=== PATIENT | female | born 1985 | race African-American/Black ===

== ENCOUNTER 2023-08-25 20:00 | Emergency (ER) | payer BC ==
[~2023-08-25] VITALS: Ht 185.4 cm; Wt 79.4 kg
[2023-08-25] MEDS ORDERED: LORAZEPAM 1 MG TABLET PO ONE (21:00)
[2023-08-25] MEDS ORDERED: LORAZEPAM 1 MG TABLET ONE (21:01)
[2023-08-25 22:07] VITALS: BP 133/85; TEMP 98.4; O2SAT 100
== END 2023-08-25 22:07 | disposition home or self-care (01) ==
LOC: ER 20:16
DX: F41.0 Panic disorder [episodic paroxysmal anxiety] (principal); Z60.2 Problems related to living alone

== ENCOUNTER 2023-09-03 11:12 | Emergency (ER) | payer BC ==
[~2023-09-03] VITALS: Ht 185.4 cm; Wt 81.2 kg
[2023-09-03 11:31] VITALS: BP 133/85; TEMP 98.4
[2023-09-03 12:24] LABS: BASOPHILS % (AUTO) 0.7 % (0.0-2.0); EOSINOPHILS % (AUTO) 0.7 % (0.0-6.0); HEMATOCRIT 41 % (33-45); HEMOGLOBIN 12.8 g/dL (11.5-14.8); LYMPHOCYTES % (AUTO) 27.4 % (20.0-44.0); MEAN CORPUSCULAR HEMOGLOBIN 24 PG (26.0-33.0); MEAN CORPUSCULAR HGB CONC 31 g/dl (31.0-36.0); MEAN CORPUSCULAR VOLUME 76 fL (82-100); MONOCYTES # (AUTO) 0.4 K/uL (0.1-1.30); MONOCYTES % (AUTO) 5.2 % (2.0-12.0); NEUTROPHILS # (AUTO) 4.7 K/uL (1.8-8.9); PLATELET COUNT (AUTO) 262 K/uL (150-450); RED BLOOD CELL COUNT(AUTO) 5.38 MIL/uL (4.0-5.2); RED CELL DISTRIBUTION WIDTH 15.8 % (11.5-15.0); WHITE BLOOD COUNT (AUTO) 7.2 K/uL (4.3-11.0)
[2023-09-03 12:36] LABS: CALCIUM, SERUM 9.7 mg/dL (8.5-10.1); CARBON DIOXIDE 23 mmol/L (21-32); CHLORIDE 102 mmol/L (98-107); CREATININE 0.8 mg/dL (0.6-1.3); GLUCOSE 92 mg/dL (74-106); POTASSIUM 3.4 mmol/L (3.5-5.1); SODIUM SERUM 134 mmol/L (136-145); UREA NITROGEN, BLOOD 7 mg/dL (7-18)
[2023-09-03 12:38] LABS: MAGNESIUM 1.9 mg/dL (1.8-2.4)
[2023-09-03 12:51] LABS: THYROID STIMULATING HORMONE 1.498 uIU/mL (0.358-3.74)
[2023-09-03 14:28] LABS: PREGNANCY TEST URINE QUAL NEGATIVE (NEGATIVE)
[2023-09-03] MEDS ORDERED: hydrOXYzine 10 MG TABLET PO ONE (15:30)
[2023-09-03] MEDS ORDERED: hydrOXYzine 10 MG TABLET ONE (15:34)
[2023-09-03] MEDS ORDERED: HYDR-500 PO (15:42)
[2023-09-03 15:46] VITALS: O2SAT 100
== END 2023-09-03 15:48 | disposition home or self-care (01) ==
LOC: ER 11:12
DX: R00.2 Palpitations (principal); F41.9 Anxiety disorder, unspecified; Z60.2 Problems related to living alone
CPT/HCPCS: 99285; 71045; 93005; 85025; 80048; 83735; 84703; 36415; 84443; 84484; Q0177